=== PATIENT | female | born 1950 | race Caucasian/White ===

== ENCOUNTER 2016-11-27 18:35 | Emergency (ER) | payer BC ==
[~2016-11-27] VITALS: Ht 152.4 cm; Wt 75.0 kg
[2016-11-27 18:36] VITALS: BP 194/77; PULSE 110; RESP 14; TEMP 97.6; O2SAT 98
[2016-11-27] MEDS ORDERED: PROZ20CA11 PO (19:03)
[2016-11-27] MEDS ORDERED: ROSU10 PO (19:03)
[2016-11-27] MEDS ORDERED: LANTUS2P SQ (19:03)
[2016-11-27] MEDS ORDERED: LISI10TA3 PO (19:03)
[2016-11-27] MEDS ORDERED: METF1000 PO (19:03)
[2016-11-27] MEDS ORDERED: SITA100T PO (19:03)
[2016-11-27 19:37] VITALS: BP 139/65; PULSE 95; RESP 18; TEMP 98.5; O2SAT 96
--- NOTE | 2016-11-27 19:46 | PD ---
HPI Chief Complaint: Cold / Flu Symptoms Time Seen by Provider: 19:15 Travel History International Travel<30 days: No Contact w/Intl Traveler<30days: No Traveled to known affect area: No History of Present Illness HPI This patient speaks primarily [place]. She declines official certified court interpreter and would prefer that her daughter who speaks Macedonian and [place] interpret for her. 66-year-old female here with cough. Symptoms started 1 week ago. The cough is occasionally productive with a small amount of sputum. She does report some back pain which is only reproduced when coughing. Denies any pain with rest. Denies any shortness of breath, fevers or chills, sore throat, rash, chest pain, abdominal pain. She does note that she had a cough for about 2 weeks at the beginning of October shortly after returning here from [place] but it went away for several weeks and then returned. She has no other complaints. [facility] Past Medical History Narrative Medical Diabetes, hyperlipidemia, hypertension Social History Alcohol Use: No Tobacco Use: No Allergies-Medications (Allergen,Severity, Reaction): Coded Allergies: No Known Allergies (Unverified , 11/27/16) Reported Meds & Prescriptions Reported Meds & Active Scripts Active Reported Prozac (Fluoxetine HCl) 20 Mg Cap 20 Mg PO DAILY Lisinopril 10 Mg Tab 10 Mg PO DAILY Crestor (Rosuvastatin Calcium) 10 Mg Tab 10 Mg PO DAILY Janumet Xr (Sitagliptin-Metformin ER) 100-1,000 Mg Tab 1 Tab PO DAILY Lantus Inj (Insulin Glargine) 1,000 Unit/10 Ml Vial 15 Units SQ HS Metformin (Metformin HCl) 1,000 Mg Tab 1,000 Mg PO DAILY With a meal Review of Systems Except as stated in HPI: all other systems reviewed are Neg Physical Exam Narrative GENERAL: Well-developed well-nourished female in no acute distress SKIN: Warm and dry. HEAD: Atraumatic. Normocephalic. EYES: Pupils equal and round. No scleral icterus. No injection or drainage. ENT: No nasal bleeding or discharge. Mucous membranes pink and moist. NECK: Trachea midline. No JVD. CARDIOVASCULAR: Regular rate and rhythm. No murmur appreciated. RESPIRATORY: No accessory muscle use. Clear to auscultation. Breath sounds equal bilaterally. GASTROINTESTINAL: Abdomen soft, non-tender, nondistended. MUSCULOSKELETAL: No obvious deformities. No clubbing. No cyanosis. No edema. Data Data Last Documented VS Vital Signs Date Time Temp Pulse Resp B/P Pulse Ox O2 Delivery O2 Flow Rate FiO2 11/27/16 19:37 98.5 95 18 139/65 96 Room Air Orders Chest, Pa & Lat (11/27/16 ) Azithromycin (Zithromax) (11/27/16 20:30) MDM Medical Decision Making Medical Screen Exam Complete: Yes Emergency Medical Condition: Yes Medical Record Reviewed: Yes Interpretation(s) cxray CONCLUSION: 1. Mild peribronchial thickening without focal infiltrate. Differential Diagnosis bronchitis, pneumonia, influenza, reactive airway disease, aortic dissection, pulmonary embolism Narrative Course 66-year-old female with cough for 1 week. She does have some back pain which is only reproduced with coughing, no pain with respiratory appears quite well. I don't suspect pulmonary embolism or aortic dissection although these were considered in the differential. Her lungs sound clear. Chest x-ray has been ordered. X-ray imaging reveals mild peribronchial thickening without focal and for tray. At this point time the plan is to start the patient on azithromycin. She'll be given the first dose here. She is stable for discharge. Diagnosis Primary Impression: Bronchitis Additional Instructions: Medication as prescribed. Follow up closely with primary care physician. Return for new or worsening symptoms. Med/Other Pt SpecificInfo: Prescription(s) given Scripts Azithromycin 250 Mg [id number] Mg PO DAILY #4 TAB Ref 0 Prov:Ginger Nelson DO 11/27/16 Disposition: 01 DISCHARGE HOME Condition: Stable Alexys Hartman Nov 27, 2016 19:45
--- NOTE | 2016-11-27 20:24 | RADRPT ---
EXAM DATE/TIME: 11/27/2016 19:29 [facility] COMPARISON: No previous studies available for comparison. INDICATIONS : Patient has had cough for four days. Patient is also short of breath. MEDICAL HISTORY : Hypertension. SURGICAL HISTORY : None. ENCOUNTER: Initial ACUITY: 4 - 6 days PAIN SCORE: 7/10 LOCATION: Bilateral chest FINDINGS: PA and lateral views of the chest demonstrate the lungs to be symmetrically aerated without evidence of mass, infiltrate or effusion. Mild peribronchial thickening. The cardiomediastinal contours are un remarkable. Osseous structures are intact. CONCLUSION: 1. Mild peribronchial thickening without focal infiltrate. Ishmael Oquendo MD on November 27, 2016 at 20:21 Board Certified Radiologist. This report was verified electronically.
[2016-11-27] MEDS ORDERED: AZIT250T3 PO (20:27)
[2016-11-27] MEDS ORDERED: AZITHROMYCIN 250 MG TAB PO ONE (20:30)
[2016-11-27] MEDS ORDERED: BENZ100 PO (20:33)
== END 2016-11-27 20:39 | disposition home or self-care (01) ==
LOC: NEPB 18:35
DX: J40 Bronchitis, not specified as acute or chronic (principal); E78.5 Hyperlipidemia, unspecified; I10 Essential (primary) hypertension; E11.9 Type 2 diabetes mellitus without complications; Z79.4 Long term (current) use of insulin; Z79.84 Long term (current) use of oral hypoglycemic drugs
CPT/HCPCS: 71020; 99283